=== PATIENT | female | born 2000 | race African-American/Black ===

== ENCOUNTER 2023-01-21 10:43 | Outpatient (AMB) | payer OTHER, SELFPAY ==
--- NOTE | 2023-01-21 10:43 | MHC.OFFWIV ---
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 Allergies No Known Allergies Allergy (Unverified 01/21/23 10:50) HPI HPI Comments History of Present Illness Details 1048 23-year-old female who denies past medical history presents to the clinic for evaluation of red area to right lower extremity, status post getting bit by mosquitoes few days ago, patient reports for the past few days grandmother tried to pop the area, and girlfriend put a needle through the area, since then redness, swelling and pain noted to the right anterior rodarte. Patient denies numbness tingling, fevers, chills, headache, vision changes, dizziness, joint pain, nausea, vomiting, abdominal pain. Physical exam significant for 2 cm X 2 cm area above right ankle area of errythema w/ central indusration and warmth. Likely mosquito bite with overlying cellulitis. No signs of necrotizing infection, osteomyelitis, threat to [place], neurovascular compromise Plan discharge with Keflex. Educated patient on diagnosis and treatment plan, answered all question, patient verbalizes understanding. At this time patient will be discharged home, advised to return with new or worsening symptoms. Educated on worrisome signs and symptoms and when to return. At this time I feel comfortable discharge home. Review of Systems Const Details: Constitutional : No Weight loss, No Fever, No Chills, No Fatigue, No Malaise ENT/Mouth : No sore throat, No Rhinorrhea Eyes: No Eye Pain, No Swelling, No Redness Cardiovascular : No Chest Pain, No SOB, No Dyspnea on Exertion, No Orthopnea, No Edema, No Palpitations Respiratory : No Cough, No Sputum, No Wheezing Gastrointestinal : No Nausea, No Vomiting, No Diarrhea, No Constipation, No abdominal Pain, No Hematochezia, No Melena Genitourinary : No Dysuria, No Urinary Frequency, No Hematuria, Musculoskeletal : No joint pain, No Myalgias, No Joint Swelling Skin : + Skin Lesions, No rash Neuro : No Weakness, No Numbness, No Dizziness, No Headache Psych : No Anxiety/Panic, No Depression All other systems reviewed and are negative All systems reviewed & are unremarkable except as noted in HPI and below Physical Exam Vital Signs: Vital signs stable Appearance: Alert.? Oriented X3.? No acute distress.? Head: Normocephalic, atraumatic, no step-offs or deformities Eyes: Pupils equal, round and reactive to light.? CVS: Normal heart rate and rhythm.? Pulses normal.? Respiratory: No respiratory distress.? Breath sounds normal.? Abdomen: Soft and nontender.? Skin: Skin warm and dry.? Normal skin color.? Normal skin turgor.? Extremities: No lower extremity edema.? No calf ttp. 5/5 strength to bilateral upper and lower extremities + 2 cm X 2 cm area above right ankle area of errythema w/ central indusration and warmth. Neuro: Oriented X 3.? No motor deficit.? No sensory deficit. CN 2-12 intact Assessment & Plan Assessment & Plan (1) Mosquito bite: Code(s): W57.XXXA - Bitten or stung by nonvenomous insect and other nonvenomous arthropods, initial encounter (2) Cellulitis: Code(s): L03.90 - Cellulitis, unspecified Plan Take your medications as prescribed. If you were prescribed antibiotics today, it is important that you take your medication to their entirety, do not skip any doses, do not finish them early. Follow-up with your primary care provider this week. Return to the emergency department with new or worsening symptoms. Such as fevers, chills, chest pain, shortness of breath, nausea, vomiting, dizziness, headache, vision changes, lethargy In case of emergency call 911 Medications: New cephalexin 500 mg PO QID 28 caps 0RF 7 days Coding Level of Care Code Est Pt Level 3 (40225) Diagnoses Mosquito bite W57.XXXA Cellulitis L03.90
[2023-01-21 10:51] VITALS: BP 94/60; TEMP 36.7; O2SAT 99
== END 2023-01-21 11:00 | disposition home or self-care (01) ==
PROVIDERS: Visit Provider Physician Assistant
DX: T63.481A Toxic effect of venom of other arthropod, accidental (unintentional), initial encounter (principal); L03.90 Cellulitis, unspecified
CPT/HCPCS: 99051; 99213

== ENCOUNTER 2023-04-19 15:17 | Outpatient (AMB) | payer OTHER, SELFPAY ==
--- NOTE | 2023-04-19 15:19 | A.OFFVIS_ITS ---
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 Doing well with concerns:discharge with an odor. Also: skin bumps, boils at time. She tries to eat healthy and stays active with exercise. Regular monthly menses that last approximately 5-6d. Currently is sexually active, same sex partner. Student: [employer] major. 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 She denies vaginal itching and irritation. STI screening offered; she accepts. Denies family history of breast, ovarian or colon cancer. Last pap smear never, first exam. [facility] Social History (Updated 04/19/23 @ 15:24 by JUAN Brown) Alcohol intake: current Alcohol intake frequency: a few times a week Patient Tobacco Use Status: Never used Tobacco Substance Use Type: Marijuana Sexual orientation: Lesbian/Krishnan/Homosexual Female Reproductive History Menstrual Duration of menses: 6-7 days Date of last menstrual period: 03/26/23 control method: none Total pregnancies: 0 Review of Systems Const All systems reviewed & are unremarkable except as noted in HPI and below Reports as per HPI Eyes Reports no additional complaints ENT Reports no additional complaints Card Reports no additional complaints Resp Reports no additional complaints GI Reports as per HPI and Reports no additional complaints Reports as per HPI Musc Reports no additional complaints Skin/Breast Reports as per HPI Neuro Reports no additional complaints Psych Reports no additional complaints Endo Reports no additional complaints Alberto/Lymph Reports no additional complaints Aller/Immun Reports no additional complaints Physical Exam Vital Signs: Last Vital Signs BP 114/78 04/19/23 15:22 BMI result Body Mass Index 38.2 Const General: cooperative, healthy appearing, no acute distress, well developed and alert Orientation/consciousness: patient oriented x3 HEENT Head: Yes normal to inspection Eyes General: appearance normal, both eyes and all related structures Neck Neck: Yes normal visual inspection Thyroid: Thyroid normal Chest Chest palpation & inspection: normal inspection of the chest and other (no puckering, dimpling, peau de orange, retraction, discharge, masses) Breast/axilla inspection: normal inspection of the breasts Breast/axilla palpation: normal palpation of the breasts Resp Effort & Inspection: normal respiratory effort GI Inspection: Yes normal to inspection Palpation (GI): Soft to palpation Rectal Exam - Female: deferred Other: External- healing of previous inflammation of ingrown hairs or skin eruptions in the groin area bilaterally and vulvar region. General: Yes bladder normal to palpation External Female Exam: normal external appearance and normal appearance of the urethra Speculum Exam - Vagina: normal appearance of the vagina, normal palpation and normal vaginal discharge Speculum Exam - Cervix: normal appearance of the cervix and normal palpation Bimanual exam- vagina & uterus: normal bimanual exam, normal palpation, uterine size normal, bladder normal to palpation, normal palpation and non-tender Bimanual Exam- Adnexa, other: no masses Skin General skin exam: no rashes or lesions noted Rashes: no rashes Neuro General: patient oriented x3 Cognition (Neuro): normal cognition Extrem General: Yes normal to inspection Psych Attitude: cooperative Thought process: Normal thought process present Assessment & Plan Assessment & Plan (1) Encounter for well woman exam with routine gynecological exam: Code(s): Z01.419 - Encounter for gynecological examination (general) (routine) without abnormal findings Plan Discussed: Current recommendations for pap smears per ASCCP guidelines. Breast awareness and periodic breast exams. Maintain a healthy lifestyle including a well balanced diet and routine exercise. Use condoms for STI and prevention if indicated. She declines STD blood work. Skin care, instructed to use an antimicrobial soap in cleansed and a circular gentle motion with a washcloth, rinse well with clear water pat in then air dry well cotton clothing and including under clothes. Sign up for the patient portal if not already enrolled. All of her questions and concerns were addressed to the best of my ability. RTO in one year for annual certified registered nurse anesthetist examination. Orders: Orders Bacterial Vaginosis Panel Today N89.8 - Other specified noninflammatory disorders of vagina, Z20.2 - Contact with and (suspected) exposure to infections with a predominantly sexual mode of transmission CT NG by PCR Today N89.8 - Other specified noninflammatory disorders of vagina, Z20.2 - Contact with and (suspected) exposure to infections with a predominantly sexual mode of transmission Pap Smear Today Z01.419 - Encounter for gynecological examination (general) (routine) without abnormal findings Coding Level of Care Code New Pt Prev Care 18-39yr(45582 Diagnoses Encounter for well woman exam with routine gynecological exam Z01.419
[2023-04-19 15:22] VITALS: BP 114/78; BMI 38.2
== END 2023-04-19 16:03 | disposition home or self-care (01) ==
PROVIDERS: Visit Provider Advanced Practice Midwife
DX: Z01.419 Encounter for gynecological examination (general) (routine) without abnormal findings (principal)
CPT/HCPCS: 99385

== ENCOUNTER 2023-04-19 15:17 | Outpatient (REF) | payer OTHER, SELFPAY ==
[2023-04-20 06:02] LABS: CT PCR NOT DETECTED (Not Detect.); NG PCR NOT DETECTED (Not Detect.)
[2023-04-20 13:08] LABS: BV Int Neg Control Negative (Negative); BV Int Pos Control Positive (Positive)
== END 2023-04-19 15:18 | disposition home or self-care (01) ==
LOC: HO.LAB 15:17
PROVIDERS: Visit Provider Advanced Practice Midwife
DX: Z01.419 Encounter for gynecological examination (general) (routine) without abnormal findings (principal); Z20.2 Contact with and (suspected) exposure to infections with a predominantly sexual mode of transmission; N89.8 Other specified noninflammatory disorders of vagina
CPT/HCPCS: 0353U; 87480; 87510; 87660

== ENCOUNTER 2023-04-19 15:43 | Outpatient (REF) | payer OTHER, SELFPAY | END 2023-04-19 15:44 | disposition home or self-care (01) | LOC: HO.LNP 15:43 | PROVIDERS: Visit Provider Advanced Practice Midwife | DX: Z01.419 Encounter for gynecological examination (general) (routine) without abnormal findings (principal) | CPT/HCPCS: 88142 ==

== ENCOUNTER 2025-01-09 11:00 | Emergency (ER) | payer OTHER, SELFPAY ==
[2025-01-09 11:31] VITALS: BP 123/79; PULSE 74; RESP 18; TEMP 36.6; O2SAT 100; BMI 34.6
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
[2025-01-09 12:24] VITALS: BP 123/79; PULSE 74; RESP 18; TEMP 36.6; O2SAT 100
--- OUTSIDE RECORDS SUMMARY | 2025-01-09 13:05 | XMS_ITS | Clinical Summary ---
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 30 tablet 07/01/2020 Active acetaminophen 500 mg Capsule Take 2 capsules by mouth every 6 hours as needed (pain). Maximum 4000 mg tylenol per day in all tylenol products 30 each 07/01/2020 Active morphine IR (MSIR) 15 mg Tablet Take 1 tablet by mouth every 6 hours as needed for Pain. 5 tablet 07/01/2020 Active Social History Tobacco Use Types Packs/Day Years Used Date Smoking Tobacco: Former Smokeless Tobacco: Never Comments:Marijuana daily Alcohol Use Standard Drinks/Week Comments Yes 0 (1 standard drink = 0.6 oz pur e alcohol) socially Comments Unknown Sex and Gender Information Value Date Recorded Sex Assigned at Not on file Legal Sex Female 12:56 AM EST Gender Identity Not on file Sexual Orientation Not on file Last Filed Vital Signs Vital Sign Reading Time Taken Comments Blood Pressure 124/70 07/01/2020 1:44 AM EST Pulse 76 07/01/2020 1:44 AM EST Temperature 36.9 C (98.5 F) 07/01/2020 1:44 AM EST Respiratory Rate 18 07/01/2020 1:44 AM EST Oxygen Saturation 99% 07/01/2020 1:44 AM EST Inhaled Oxygen Concentration - - Weight 81.6 kg (180 lb) 07/01/2020 1:04 AM EST Height 172.7 cm (5' 8 ) 07/01/2020 1:04 AM EST Body Mass Index 27.37 07/01/2020 1:04 AM EST Plan of Treatment Health Maintenance Due Date Last Done Comments Chlamydia Screening 01/19/2015 HPV vaccine (1 - 3-dose series) 01/19/2015 HIV screen 01/19/2018 Hepatitis C Screening 01/19/2018 Hepatitis B vaccine (0-59 yrs) and Risk (1) 01/19/2019 Tetanus/Diphtheria/Pertussis Vaccines (1 - Tdap) 01/19 PAP Smear 01/19/2021 Covid-19 Vaccine (1 - 2023- season) 2024 Influenza (Flu) vaccine (1 o f 1 - Influenza standard series) 01/13/2025 Insurance [facility] Care Teams 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
--- OUTSIDE RECORDS SUMMARY | 2025-01-09 13:05 | XMS_ITS | Encounter Summary ---
Author Organization [facility] Address [address] [facility] [address] [place] [address] Phone Care Team Providers Care Flatwork Washer Name Role Phone Nga Jensen DO Primary Care Provid er Timur Chatman DO Primary Care Provider [phone] Encounter Details Date Type Department Care Team (Latest Contact Info) Description 06/21/2023 Transcribe Orders Virtual Department [address] [place] [address] Kiley Meier PA 6 [facility] [place] [address] [place] [address] Acute abdomen (Primary Dx); Abdominal pain, unspecified abdominal location Social History Tobacco Use Types Packs/Day Years Used Date Smoking Tobacco: Never Smokeless Tobacco: Never Alcohol Use Standard Drinks/Week Comments Yes 0 (1 standard drink = 0.6 oz pur e alcohol) Education Answer Date Recorded Are you interested in more education? Not on ting e 09/09/2022 Are you concerned about learning? Not on file 09/09/2022 No 09/09/2022 No 09/09/2022 Digital Access Answer Date Recorded No 10/10/2022 No 10/10/2022 Reliable internet access at home? Not on file 10/10/2022 Device with a working camera? 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 1.5 cm intramural fibroid with possible submucosal component. 2. 2.1 cm hemorrhagic cyst at the right ovary with retractile clot. Narrative 07/31/2023 5:04 PM EDT US PELVIS TRANSABDOMINAL PLUS TRANSVAGINAL Referring clinician's provided indication for this examination in Epic: Outside Radiology Order; ACUTE ABDOMEN TECHNIQUE: Pelvic Ultrasound Transabdominal performed for global imaging of the pelvis. Pelvic Ultrasound Transvaginal performed for detailed imaging of the endometrium and/or adnexa. COMPARISON: There is no prior study available for comparison FINDINGS: Uterus: Size: 7.8 x 3.4 x 4.8 cm. Orientation: anteverted Myometrium: There is an intramural fibroid at the anterior fundus measuring 1.5 cm with possible submucosal component. Endometrium: Normal. Thickness: 8 mm. Right adnexa: Ovary: There is a hemorrhagic cyst at the right ovary with retractile clot measuring up to 2.1 cm.. The right ovary measures 4.1 x 3.0 x 2.5 cm. Normal color and spectral Doppler waveform analysis. Left adnexa: Ovary: Normal. The left ovary measures 3.2 x 3.0 x 1.9 cm. Normal color and spectral Doppler waveform analysis. Free fluid: No significant free fluid. Procedure Note Rafia Carlin MD - 07/31/2023 US PELVIS TRANSABDOMINAL PLUS TRANSVAGINAL Referring clinician's provided indication for this examination in Epic:Outside Radiology Order; ACUTE ABDOMEN TECHNIQUE: Pelvic Ultrasound Transabdominal performed for global imagingof the pelvis. Pelvic Ultrasound Transvaginal performed for detailedimaging of the endometrium and/or adnexa. COMPARISON: There is no prior study available for comparison FINDINGS: Uterus: Size: 7.8 x 3.4 x 4.8 cm. Orientation: anteverted Myometrium: There is an intramural fibroid at the anterior fundusmeasuring 1.5 cm with possible submucosal component. Endometrium: Normal. Thickness: 8 mm. Right adnexa: Ovary: There is a hemorrhagic cyst at the right ovary with retractile clotmeasuring up to 2.1 cm.. The right ovary measures 4.1 x 3.0 x 2.5 cm.Normal color and spectral Doppler waveform analysis. Left adnexa: Ovary: Normal. The left ovary measures 3.2 x 3.0 x 1.9 cm. Normal color andspectral Doppler waveform analysis. Free fluid: No significant free fluid. IMPRESSION: 1. 1.5 cm intramural fibroid with possible submucosal component. 2. 2.1 cm hemorrhagic cyst at the right ovary with retractile clot. us Kiley VAZQUEZ IMG US PELVIS Final Resul t * US ABDOMEN COMPLETE (ADULT) (06/28/2023 12:33 PM EST) Anatomical Region Laterality Modality Abdomen Ultrasound 06/28/2023 12:5 9 PM EST Impressions 06/28/2023 1:04 PM EST Sonographic appearance of the abdomen within normal limits. Narrative 06/28/2023 1:04 PM EST US ABDOMEN COMPLETE (ADULT) Referring clinician's provided indication for this examination in [facility]: Outside Radiology Order; ACUTE ABDOMEN Review of the Electronic Medical Record reveals an additional history of: Abdominal pain after eating Pelvic sonography also ordered. Patient declined pelvic imaging. TECHNIQUE: Abdominal Ultrasound Complete. COMPARISON: There is no prior study available for comparison FINDINGS: Liver: Normal attenuation. No focal lesions. Main Portal Vein: Patent with normal direction of flow. Gallbladder: No gallstones or gallbladder wall thickening. Castillo's Sign: Negative. Biliary: No intrahepatic or extrahepatic biliary ductal dilatation. The common bile duct measures 3 mm. Pancreas: Incompletely visualized. Visualized portions are within normal limits Spleen: Normal echogenicity. No splenomegaly. Kidneys: Normal in size bilaterally. No stones or hydronephrosis. Aorta: Normal, where visualized sonographically. IVC: Normal intrahepatic segment. Procedure Note Rafia Carlin MD - 06/28/2023 US ABDOMEN COMPLETE (ADULT) Referring clinician's provided indication for this examination in Epic:Outside Radiology Order; ACUTE ABDOMEN Review of the Electronic Medical Record reveals an additional history of:Abdominal pain after eating Pelvic sonography also ordered. Patient declined pelvic imaging. TECHNIQUE: Abdominal Ultrasound Complete. COMPARISON: There is no prior study available for comparison FINDINGS: Liver: Normal attenuation. No focal lesions. Main Portal Vein: Patent with normal direction of flow. Gallbladder: No gallstones or gallbladder wall thickening. Castillo's Sign: Negative. Biliary: No intrahepatic or extrahepatic biliary ductal dilatation. The common bile duct measures 3 mm. Pancreas: Incompletely visualized. Visualized portions are within normallimits Spleen: Normal echogenicity. No splenomegaly. Kidneys: Normal in size bilaterally. No stones or hydronephrosis. Aorta: Normal, where visualized sonographically. IVC: Normal intrahepatic segment. IMPRESSION: Sonographic appearance of the abdomen within normal limits. [facility] Robbie VAZQUEZ [facility] US ABDOMEN Final Resul t documented in this encounter Visit Diagnoses Diagnosis Acute abdomen- Primary Abdominal pain, unspecified site Abdominal pain, unspecified abdominal location Acute abdomen Abdominal pain, unspecified site Abdominal pain, unspecified abdominal location documented in this encounter Additional Health Concerns Infection Onset Date Last Indicated Resolved Time CoV-Risk 08/07/2024 08/07/2024 08/18/2024 1:21 AM EDT Influenza A 08/07/2024 08/07/2024 08/14/2024 1:21 AM EDT documented as of this encounter Care Teams Flatwork Washer Relationship Specialty Start Date End Date Nga Jensen DO [address] [place] [address] [address] [place] [address] PCP - General 05/18/17 08/06/24 Timur Chatman DO [address] [place] [address] [email or web address] PCP - General Internal Medicine 08/07/24 documented as of this encounter Additional Source Comments The information contained in this document represents components of the legal health record. It is not the complete legal health record.[facility]
--- OUTSIDE RECORDS SUMMARY | 2025-01-09 13:05 | XMS_ITS | Encounter Summary ---
Author Organization [facility] Address [address] [place] [address] Phone Care Team Providers Care Custody Assistant Name Role Phone Nga Jensen DO Primary Care Provid er Timur Chatman DO Primary Care Provider [phone] Encounter Details Date Type Department Care Team (Late st Contact Info) Description 11/15/2023 Procedure Pass [facility] Endoscopy Admitting Dept Virtual Department [address] [place] [address] Social History Tobacco Use Types Packs/Day Years [...] on file documented as of this encounter Visit Diagnoses Not on filedocumented in this encounter Additional Health Concerns Infection Onset Date Last Indicated Resolved Time CoV-Risk 08/07/2024 08/07/2024 08/18/2024 1:21 AM EDT Influenza A 08/07/2024 08/07/2024 08/14/2024 1:21 AM EDT documented as of this encounter Care Teams Custody Assistant Relationship Specialty Start Date End Date Nga Jensen DO [address] [place] [address] [address] [place] [address] PCP - General 05/18/17 08/06/24 Timur Chatman DO [address] [facility] [address] [email or web address] PCP - General Internal Medicine 08/07/24 documented as of this encounter Additional Source Comments The information contained in this document represents components of the legal health record. It is not the complete legal health record.[facility]
--- OUTSIDE RECORDS SUMMARY | 2025-01-09 13:05 | XMS_ITS | Clinical Summary ---
Author Organization [facility] Address [address] [place] [address] Phone Care Team Providers Care Library Services Dean Name Role Phone Timur Chatman DO Primary Care Provider [phone] Allergies No known active allergies Medications No known medications Active Problems Problem Noted Date Diagnosed Date Left upper quadrant abdominal pain 04/12/2024 General counseling and advice on contraceptive m anagement 07/23/2020 Assessment & Plan (07/23/2020 4:07 PM EST): Contraceptive options risks and benefits reviewed with patient. Anticipated bleeding changes associated with different contraceptive best reviewed. Health benefits reviewed. Patient desires to try NuvaRing. Instructions for use provided. Continued condom use encouraged. Cannabis abuse, daily use 07/23/2020 Assessment & Plan (07/23/2020 4:57 PM EST): Generally smokes several times a day. Feels she is not dependent as she was able to not smoke the past 2 weeks due to wisdom tooth surgery. Does state she has anxiety symptoms. Discussed that cannabis acutely impairs a variety of neuropsychological functions in a dose-dependent manner, especially attention, concentration, episodic memory. Discussed that cannabis smoke contains many of the same respiratory irritants and carcinogens as tobacco smoke. Have encouraged patient to reconsider her use and frequency of use. Encouraged her to pursue treatment for anxiety symptoms. Immunizations Immunization Administration Dates Next Due Influenza Quadrivalent MDCK Preservative Free IM 02/26/2018,02/27/2017 Meningococcal MCV4P 01/11/2017 Family History Medical History Relation Comments No Known Problems Brother No Known Problems Father No Known Problems Mother No Known Problems Sister Relation Status Comments Brother Alive Father Alive Mother Alive Sister Alive Social History Tobacco Use Types Packs/Day Years Used Date Smoking Tobacco: Never Smokeless Tobacco: Current Tobacco Cessation:Ready to Q uit: Not Asked; Counseling Given: Not Answered Comments:Vapes daily Alcohol Use Standard Drinks/Week Comments Yes [...] file Not on file Not on file Last Filed Vital Signs Vital Sign Reading Time Taken Comments Blood Pressure 120/83 08/07/2024 9:10 AM EDT Pulse 64 08/07/2024 9:10 AM EDT Temperature 36.8 C (98.3 F) 08/07/2024 9:10 AM EDT Respiratory Rate 16 08/07/2024 9:10 AM EDT Oxygen Saturation 100% 08/07/2024 9:10 AM EDT Inhaled Oxygen Concentration - - Weight 113.4 kg (250 lb) 04/12/2024 1:53 PM EST Height 172.7 cm (5' 8 ) 04/12/2024 1:53 PM EST Body Mass Index 38.01 04/12/2024 1:53 PM EST Plan of Treatment Health Maintenance Due Date Last Done Comments Adult Td,Tdap Booster 2000 DEPRESSION SCREENING 2012 HPV VACCINES (1 - 3-dose series) 01/19/2015 HEPATITIS C SCREENING 01/19/2018 HIV ONE-TIME SCREENING (18-6 5 YEARS) 01/19/2018 PAP SMEAR 01/19/2021 CHLAMYDIA SCREENING 07/23/2021 07/23/2020 COVID-19 VACCINE (4 - 2023-2 5 season) 2024 08/03/2021, 10/08/2020, 09/17/2020 SMOKING Hx and SMOKELESS TOBACCO SCREENING 08/07/2025 08/07/2024 MENINGOCOCCAL VACCINES (ACWY) Completed 01/11/2017 HEPATITIS A VACCINES Aged Out No long er eligible based on patient's age to complete this topic HIB VACCINES Aged Out No longer eligi ble based on patient's age to complete this topic MENINGOCOCCAL VACCINES (B) Aged Out N o longer eligible based on patient's age to complete this topic PNEUMOCOCCAL VACCINES (0-49 years) Aged Out No longer eligible b ased on patient's age to complete this topic Medical Devices Not on file Procedures Procedure Name Priority Date/Time Associated Diagnosis Comments CHLAMYDIA TRACHOMATIS AND NEISSERIA GONORRHOEAE NUCLEIC ACID DETECTION Routine 07/23/2020 3:02 PM EST Screening examination for sexually transmitted disease from Last 3 Months or Most Recently Relevant to Health Maintenance Results * Chlamydia Trachomatis and Neisseria Gonorrhoeae Nucleic Acid Detection (07/23/2020 3:02 PM EST) CHLAMYDIA TRACHOMATIS Not Detected Not Detected [facility] NEISERIA GONORRHOEAE Not Detected Not Detected [facility] SPECIMEN TYPE URINE [facility] Urine (Urine) 07/23/2020 3:0 2 PM EST 07/23/2020 4:19 PM EST Mary Beth Perry MD NON CULTURE MICROBIO LOGY Final Result [facility] [address] [place] [address] from Last 3 Months or Most Recently Relevant to Health Maintenance Insurance [facility] [place] [address] [place] [address] [place] [address] [place] [address] HMO HMO O O Care Teams Library Services Dean Relationship Specialty Start Date End Date Timur Chatman DO [address] [place] [address] [email or web address] PCP - General Internal Medicine 08/07/24 Additional Source Comments The information contained in this document represents components of the legal health record. It is not the complete legal health record.[facility]
== END 2025-01-09 12:24 | disposition home or self-care (01) ==
PROVIDERS: Emergency Provider Emergency Medicine; PCP Internal Medicine
DX: M54.2 Cervicalgia (principal); S16.1XXA Strain of muscle, fascia and tendon at neck level, initial encounter; W22.8XXA Striking against or struck by other objects, initial encounter; V49.88XA Car occupant (driver) (passenger) injured in other specified transport accidents, initial encounter; Y93.89 Activity, other specified; Y92.488 Other paved roadways as the place of occurrence of the external cause; Y99.8 Other external cause status
CPT/HCPCS: 99282; 99283

== ENCOUNTER 2025-01-14 12:49 | Outpatient (REF) | payer OTHER, SELFPAY ==
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
--- NOTE | ~2025-01-14 | XR_ITS ---
CLINICAL HISTORY: LEFT ELBOW PAIN --- Additional Notes or Special Instructions: O 3 view left elbow Comparison: None provided Findings: No acute fractures or dislocations. No significant arthritic change or erosions. No joint effusion. No radiopaque foreign body. IMPRESSION: 1. No acute findings. This document has been electronically signed by: Gunner Madison DO on 01/15/2025 09:40:56
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
--- OUTSIDE RECORDS SUMMARY | 2025-01-14 14:10 | XMS_ITS | Encounter Summary ---
Author Organization [facility] Address [address] [facility] [address] [place] [address] Phone Care Team Providers Care Supervisor Loading Name Role Phone Nga Jensen DO Primary Care Provid er Timur Chatman DO Primary Care Provider [phone] Encounter Details Date Type Department Care Team (Latest Contact Info) Description 06/21/2023 Transcribe Orders Virtual Department [address] [place] [address] Kiley Meier PA 6 [facility] [place] [address] [place] [address] Acute abdomen (Primary Dx); Abdominal pain, unspecified [...] clinician's provided indication for this examination in [facility]: Outside Radiology Order; ACUTE ABDOMEN Review [...] appearance of the abdomen within normal limits. [facility] Robbie VAZQUEZ [facility] [place] ABDOMEN Final Resul t documented in [...] documented as of this encounter Care Teams Supervisor Loading Relationship Specialty Start Date End Date gNa Jensen DO [address] [place] [address] [address] [place] [address] PCP - General 05/18/17 08/06/24 Timur Chatman DO [address] [place] [address] [email or web address] PCP - General Internal Medicine 08/07/24 documented as of this encounter Additional Source Comments The information contained in this document represents components of the legal health record. It is not the complete legal health record.[facility]
--- OUTSIDE RECORDS SUMMARY | 2025-01-14 14:10 | XMS_ITS | Clinical Summary ---
Author Organization [facility] Address [address] [place] [address] Phone Care Team Providers Care Cytotechnologist Name Role Phone Timur Chatman DO Primary Care Provider [phone] Allergies No known active allergies Medications No [...] PAP SMEAR 01/19/2021 CHLAMYDIA SCREENING 07/23/2021 07/23/2020 INFLUENZA VACCINE (#1) 2024 8, 02/27/2017 COVID-19 VACCINE (2 6 season) 2025 08/03/2021, 10/08/2020, 09/17/2020 SMOKING Hx and SMOKELESS [...] EST) CHLAMYDIA TRACHOMATIS Not Detected Not Detected [facility] NEISERIA GONORRHOEAE Not Detected Not Detected [facility] SPECIMEN TYPE URINE [facility] Urine (Urine) 07/23/2020 3:0 2 PM EST 07/23/2020 4:19 PM EST us Mary Beth Perry MD NON CULTURE MICROBIO LOGY Final Result [facility] [address] [place] [address] from Last 3 Months or Most Recently Relevant to Health Maintenance Insurance [facility] O [facility] [place] [address] [place] [address] [place], [place] [address] [place] [address] [place] [address] [place] [address] [place] [address] [place] [address] HMO [facility] Address: [place] [phone] Care Teams Cytotechnologist Relationship Specialty Start Date End Date Timur Chatman DO [address] [place] [id number] [email or web address] PCP - General Internal Medicine 08/07/24 Additional Source Comments The information contained in this document represents components of the legal health record. It is not the complete legal health record.[facility]
--- OUTSIDE RECORDS SUMMARY | 2025-01-14 14:10 | XMS_ITS | Encounter Summary ---
Author Organization [facility] Address [address] [place] [address] Phone Care Team Providers Care Gold Charmer Name Role Phone Nga Jensen DO Primary Care Provid er Timur Chatman DO Primary Care Provider [phone] Encounter Details Date Type Department Care Team (Late st Contact Info) Description 11/15/2023 Procedure Pass [facility] Endoscopy Admitting Dept Virtual Department [address] [place] [address] Social History Tobacco Use Types Packs/Day Years [...] documented as of this encounter Care Teams Gold Charmer Relationship Specialty Start Date End Date Nga Jensen DO [address] [place] [address] [address] [place] [address] PCP - General 05/18/17 08/06/24 Timur Chatman DO [address] [place] [address] [email or web address] PCP - General Internal Medicine 08/07/24 documented as of this encounter Additional Source Comments The information contained in this document represents components of the legal health record. It is not the complete legal health record.[facility]
--- OUTSIDE RECORDS SUMMARY | 2025-01-14 14:10 | XMS_ITS | Clinical Summary ---
Author Organization [facility] [place] [address] Care Team Providers Care Absorption Operator Name Role Phone None Primary Care Provider [...] 1 - Influenza standard series) 01/13/2025 Insurance [facility] Care Teams Absorption Operator Relationship Specialty Start Date End Date None None PCP - General 07/01/20
== END 2025-01-14 12:50 | disposition home or self-care (01) ==
LOC: HO.XRAY 12:49
PROVIDERS: Visit Provider Physician Assistant
DX: M54.2 Cervicalgia (principal); M25.522 Pain in left elbow; M25.512 Pain in left shoulder
CPT/HCPCS: 72040; 73030; 73080

== ENCOUNTER → 2025-01-14 13:25 | Outpatient (BNV) | payer OTHER, SELFPAY | PROVIDERS: Visit Provider Family Medicine | DX: M54.2 Cervicalgia (principal); M25.512 Pain in left shoulder; M25.522 Pain in left elbow; V47.5XXA Car driver injured in collision with fixed or stationary object in traffic accident, initial encounter | CPT/HCPCS: 72040; 73030; 73080 ==